=== PATIENT | male | born 1935 | race Caucasian/White ===

== ENCOUNTER 2023-04-27 16:16 | Outpatient (NON) | payer MEDICARE, SELFPAY | END 2023-04-27 16:17 | disposition home or self-care (01) | LOC: ANHLAB 16:19 | PROVIDERS: PCP Family Medicine; Visit Provider Nurse Practitioner | DX: C44.319 Basal cell carcinoma of skin of other parts of face (principal); D48.5 Neoplasm of uncertain behavior of skin | CPT/HCPCS: 88305 ==

== ENCOUNTER 2023-06-05 14:19 | Outpatient (NON) | payer MEDICARE, SELFPAY | END 2023-06-05 14:20 | disposition home or self-care (01) | LOC: ANHLAB 14:19 | PROVIDERS: PCP Family Medicine; Visit Provider Nurse Practitioner | DX: C44.319 Basal cell carcinoma of skin of other parts of face (principal) | CPT/HCPCS: 88305; 88331 ==